=== PATIENT | female | born 1970 | race Caucasian/White ===

== ENCOUNTER 2018-08-15 18:01 | Emergency (ER) | payer MEDICAID ==
[~2018-08-15] VITALS: Ht 162.6 cm; Wt 82.6 kg
[2018-08-15 18:05] VITALS: Ht 162.6 cm; Wt 82.6 kg
[2018-08-15] MEDS ORDERED: ONDANSETRON 4 MG INJ IV STA (18:16)
[2018-08-15] MEDS ORDERED: morphine 4 MG/ML VIAL IV STA (18:16)
[2018-08-15] MEDS ORDERED: ONDA4TAB14 PO (19:58)
[2018-08-15] MEDS ORDERED: IBUP-1542 PO (19:58)
--- NOTE | 2018-08-15 20:01 | ERD ---
ER Documentation Chief Complaint Chief Complaint FELLING , WEAK , VOMITING AFTER HIKING TODAY H/O DM , PT DIAPHORETIC HPI Patient is a 47-year-old female with diabetes who presents with dizziness and nausea. She has headache as well. Symptoms started about 1 hour prior. It started after hiking today. She had an emotional issue with her family before as well today. She has never had this symptoms before. She has had no treat ment as of yet. Upon review of old medical records this is the patient's first visit to the emergency department. She does have a primary doctor. ROS All systems reviewed and are negative except as per history of present illness. Medications Home Meds Active Scripts Ondansetron (Ondansetron Odt) 4 Mg Tab.rapdis, 4 MG PO Q6H PRN for NAUSEA AND/OR VOMITING, #10 TAB Prov:ADARSH MCCARTHY MD 08/15/18 Ibuprofen* (Motrin*) 600 Mg Tab, 600 MG PO Q6H PRN for PAIN AND OR ELEVATED TEMP, #30 TAB Prov:ADARSH MCCARTHY MD 08/15/18 Allergies Allergies: Coded Allergies: No Known Allergy (Unverified , 08/15/18) PMhx/Soc History of Surgery: Yes ( x3) Hx Miscellaneous Medical Probl: Yes (DM) Hx Alcohol Use: No Hx Substance Use: No Hx Tobacco Use: No Smoking Status: Never smoker FmHx Family History: diabetes Physical Exam Vitals Vital Signs Date Temp Pulse Resp B/P (MAP) Pulse Ox O2 O2 Flow FiO2 Time Delivery Rate 08/15/18 98.1 97 18 134/92 99 18:05 (106) Physical Exam Const: No acute distress Head: Atraumatic Eyes: Normal Conjunctiva ENT: Normal External Ears, Nose and Mouth. Neck: Full range of motion. No meningismus. Resp: Clear to auscultation bilaterally Cardio: Regular rate and rhythm, no murmurs Abd: Soft, non tender, non distended. Normal bowel sounds Skin: No petechiae or rashes Back: No midline or flank tenderness Ext: No cyanosis, or edema Neur: Awake and alert, cranial nerves II through XII are intact, strength is 5 out of 5 in all 4 extremities Psych: Normal Mood and Affect Result Diagram: 08/15/18 1832 08/15/18 1832 Results 24 hrs Laboratory Tests Test 08/15/18 18:09 08/15/18 18:32 08/15/18 18:57 Bedside Glucose 191 mg/dL White Blood Count 8.9 10^3/ul Red Blood Count 4.47 10^6/ul Hemoglobin 13.3 g/dl Hematocrit 40.6 % Mean Corpuscular Volume 90.8 fl Mean Corpuscular Hemoglobin 29.8 pg Mean Corpuscular 32.8 g/dl Hemoglobin Concent Red Cell Distribution Width 12.6 % Platelet Count 340 10^3/UL Mean Platelet Volume 9.4 fl Immature Granulocytes % 0.400 % Neutrophils % 65.6 % Lymphocytes % 29.6 % Monocytes % 3.4 % Eosinophils % 0.4 % Basophils % 0.6 % Nucleated Red Blood Cells % 0.0 /100WBC Immature Granulocytes # 0.040 10^3/ul Neutrophils # 5.8 10^3/ul Lymphocytes # 2.6 10^3/ul Monocytes # 0.3 10^3/ul Eosinophils # 0.0 10^3/ul Basophils # 0.1 10^3/ul Nucleated Red Blood Cells # 0.0 10^3/ul Prothrombin Time 12.1 Sec Prothrombin Time Ratio 0.9 INR International 0.89 Normalized Ratio Activated Partial Thromboplast 21.7 Sec Time Urine Color STRAW Urine Clarity CLEAR Urine pH 6.0 Urine Specific [place] 1.008 Urine Ketones TRACE mg/dL Urine Nitrite NEGATIVE mg/dL Urine Bilirubin NEGATIVE mg/dL Urine Urobilinogen NEGATIVE mg/dL Urine Leukocyte Esterase NEGATIVE Darío/ul Urine Hemoglobin NEGATIVE mg/dL Urine Glucose 2+ mg/dL Urine Total Protein NEGATIVE mg/dl Sodium Level 140 mmol/L Potassium Level 3.8 mmol/L Chloride Level 96 mmol/L Carbon Dioxide Level 29 mmol/L Anion Gap 15 Blood Urea Nitrogen 8 mg/dl Creatinine 0.45 mg/dl Est Glomerular Filtrat > 60 mL/min Rate mL/min Glucose Level 194 mg/dl Calcium Level 9.8 mg/dl Troponin I < 0.012 ng/ml POC Beta HCG, Qualitative NEGATIVE Current Medications Medications Dose Sig/Maria Eugenia Start Time Status Last (Trade) Ordered Route PRN Stop Time Admin Dose Reason Admin Ondansetron 4 mg ONCE STAT 08/15/18 DC 08/15/18 HCl (Zofran IV 18:16 18:50 Inj) 2/16/19 18:17 Morphine 4 mg ONCE STAT 08/15/18 DC 08/15/18 Sulfate IV 18:16 18:50 (morphine) 08/15/18 18:17 Procedures/MDM EKG read by me: Rate/Rhythm: Regular rate and rhythm at a rate of 88 Intervals: Normal Impression: No evidence of ischemia or arrhythmia CT brain negative per radiology. Patient is a 47-year-old female with headache, dizziness, and nausea. EKG is normal. CT scan of the brain is negative. Laboratory studies are normal. I doubt intra-cranial hemorrhage or mass. I doubt acute coronary syndrome. I doubt stroke. The patient will be discharged home but will need to follow-up closely with her primary doctor within 24-48 hours. She can return sooner for any worsening symptoms. Departure Diagnosis: Primary Impression: Headache Headache type: unspecified Headache chronicity pattern: acute headache Intractability: not intractable Qualified Codes: R51 - Headache Additional Impressions: Dizziness Nausea Condition: Fair Patient Instructions: Self-Care for Headaches, Nausea, Dizziness, Unk Cause Additional Instructions: Llame al doctor MAANA y guanako sai HARISH PARA DENTRO DE 1-2 ROSSI.Dgale a la secre taria que nosotros le instruimos hacer esta harish.Avise o llame si [place] condicin se empeora antes de la harish. Regresa aqui si peor o no mejor. ADARSH MCCARTHY MD Aug 15, 2018 20:01
[2018-08-15 20:30] VITALS: BP 118/78; PULSE 94; RESP 19
== END 2018-08-15 20:32 | disposition home or self-care (01) ==
LOC: E/R 18:01
DX: R51 Headache (principal); R42 Dizziness and giddiness; E11.9 Type 2 diabetes mellitus without complications
CPT/HCPCS: 36415; 70450; 80048; 81003; 81025; 82962; 84484; 85025; 85610; 85730; 96374; 96375; J2270; J2405; Z7502; 93005

== ENCOUNTER 2018-09-19 00:13 | Inpatient (IN) | payer MEDICAID ==
[~2018-09-19] VITALS: Ht 157.5 cm; Wt 85.3 kg
[~2018-09-19 00:13] MED LIST: IBUP-1542 PO; ONDA4TAB14 PO
[2018-09-19] MEDS ORDERED: SODIUM CHLORIDE 0.9% 1L BAG IV* STA (00:29)
[2018-09-19] MEDS ORDERED: ACETAMINOPHEN 325 MG TAB PO STA (00:29)
[2018-09-19] MEDS ORDERED: KETOROLAC 30 MG INJ IV STA (00:29)
[2018-09-19] MEDS ORDERED: CEFTRIAXONE 1 GM/50 ML (PMX) 50 ML IVPB ONE (00:30)
[2018-09-19] MEDS ORDERED: HYDROmorphONE 0.5 MG/0.5 ML SYG IV STA (01:55)
[2018-09-19] MEDS ORDERED: SOD CHLORIDE 0.9% 1,000 ML IV STA (03:18)
[2018-09-19] MEDS ORDERED: MV/K1COM PO (04:06)
[2018-09-19] MEDS ORDERED: GLIM4TAB PO (04:06)
[2018-09-19] MEDS ORDERED: ACET-514 PO (04:06)
[2018-09-19] MEDS ORDERED: CEPH500C PO (04:06)
[2018-09-19] MEDS ORDERED: SITA1TAB5 PO (04:06)
[2018-09-19] MEDS ORDERED: PHEN97.511 PO (04:07)
[2018-09-19] MEDS ORDERED: ACETAMINOPHEN 325 MG TAB PO PRN ×2 (04:30→05:00)
[2018-09-19] MEDS ORDERED: ONDANSETRON 4 MG INJ IV PRN (04:30)
[2018-09-19] MEDS ORDERED: SOD CHLORIDE 0.9% 1,000 ML IV SCH (04:42)
[2018-09-19] MEDS ORDERED: BISACODYL (EC) 5 MG TAB PO PRN (05:00)
[2018-09-19] MEDS ORDERED: NACL 0.9% 3 ML SYG IV SCH (05:00)
[2018-09-19] MEDS: ONDANSETRON 4 MG INJ IV PRN (05:10)
[2018-09-19] MEDS: morphine 2 MG INJ IV PRN (05:10)
--- NOTE | 2018-09-19 05:18 | HP ---
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 IV fluid hydration with normal saline. Ceftriaxone 1 g every 24 hours. Will await urine culture results. Renal ultrasound. Patient was seen to have borderline blood pressures we did respond to fluids however secondary to this patient was admitted to telemetry. #2 pyelonephritis: Patient does have bilateral flank pain to palpation. Renal ultrasound. #3 diabetes mellitus: We will hold home oral medications, will check hemoglobin A 1C. Carbohydrate diet #4 obesity: Check hemoglobin A 1C, lipid panel, TSH #5 DVT GI prophylaxis: SCDs, no GI prophylaxis indicated Further treatment strategy will be implemented as per the clinical course Result Diagram: 09/19/18 0020 09/19/18 0020 Results 24hrs Laboratory Tests Test 09/19/18 00:20 White Blood Count 7.7 Red Blood Count 4.12 L Hemoglobin 11.9 L Hematocrit 37.2 Mean Corpuscular Volume 90.3 Mean Corpuscular Hemoglobin 28.9 L Mean Corpuscular Hemoglobin Concent 32.0 Red Cell Distribution Width 13.0 Platelet Count 339 Mean Platelet Volume 9.5 Immature Granulocytes % 0.500 H Neutrophils % 78.7 H Segmented Neutrophils % (Manual) 69 Band Neutrophils % (Manual) 4 Lymphocytes % 19.4 Lymphocytes % (Manual) 23 Reactive Lymphocytes % (Manual) 3 H Monocytes % 0.9 Monocytes % (Manual) 1 Eosinophils % 0.1 Basophils % 0.4 Nucleated Red Blood Cells % 0.0 Immature Granulocytes # 0.040 H Neutrophils # 6.1 Neutrophils # (Manual) 5.3 Band Neutrophils # 0.3 Lymphocytes (Manual) 1.7 Lymphocytes # 1.5 Reactive Lymphocytes # 0.2 H Monocytes # 0.1 L Monocytes # (Manual) 0.0 L Eosinophils # 0.0 Basophils # 0.0 Nucleated Red Blood Cells # 0.0 Platelet Estimate NORMAL Polychromasia 3+ Anisocytosis 1+ Urine Color TEENA Urine Clarity SLIGHTLY CLOUDY A Urine pH 6.0 Urine Specific [place] 1.014 Urine Ketones TRACE A Urine Nitrite POSITIVE A Urine Bilirubin NEGATIVE Urine Urobilinogen 2+ H Urine Leukocyte Esterase 1+ H Urine Microscopic RBC 20 H Urine Microscopic WBC > 182 H Urine Squamous Epithelial Cells FEW Urine Bacteria FEW A Urine Hemoglobin 1+ H Urine Glucose 2+ H Urine Total Protein 1+ H Sodium Level 137 Potassium Level 3.4 L Chloride Level 101 Carbon Dioxide Level 25 Anion Gap 11 Blood Urea Nitrogen 11 Creatinine 0.43 L Est Glomerular Filtrat Rate mL/min > 60 Glucose Level 179 Lactic Acid Level 1.6 Calcium Level 8.9 HPI/ROS Admit Date/Time Admit Date/Time Hx of Present Illness Chief complaint: Abdominal pain radiating to the back This is a 48-year-old female who presents today with abdominal pain that was radiating to the back. Patient reports chills and fever. She went to the clinic and was prescribed Keflex and took 2 doses but she she continued to feel worse so she came to the ER. She states that the pain starts in the lower abdomen and then radiates to the bilateral flanks. She has had some dysuria as well. She reports chills and fevers. She has a history of UTIs. Urgency. Allergies: NKDA Medications: See Aug Const: As per HPI Eyes : No pain discharge or redness or change in visual acuity ENT: No pain, sore throat, congestion, congestion, dysphagia or discharge Respiratory: No shortness of breath, cough, sputum, wheezing, or pleuritic pain Cardiovascular: No chest pain, palpitation, PND, or edema GI : As per HPI Genitourinary: As per HPI Musculoskeletal: No joint pain, back pain, neck pain, restricted range of motion in neck or joints Skin: No rash, bruising or hives Neuro: No headache, dizziness, syncope, seizure, focal weakness Endocrine: No polyuria, polydipsia, temperature intolerance Psych: No hallucination, depression, anxiety or suicidal ideation PMH/Family/Social Past Medical History UTI, diabetes mellitus Medications Current Medications Ondansetron HCl (Zofran Inj) 4 mg ER BRIDGE PRN IV NAUSEA/VOMITING; Start 09/19/18 at 04:30; Stop 09/20/18 at 04:29 Acetaminophen (Tylenol Tab) 650 mg ER BRIDGE PRN PO .MILD PAIN 1-3 OR TEMP; Start 09/19/18 at 04:30; Stop 09/20/18 at 04:29 Sodium Chloride 1,000 ml @ 80 mls/hr [id number] IV ; Start 09/19/18 at 04:42; Stop 09/19/18 at 17:11 IV Flush (NS 3 ml) 3 ml PER PROTOCOL IV ; Start 09/19/18 at 05:00 Ondansetron HCl (Zofran Inj) 4 mg Q6H PRN IV NAUSEA/VOMITING; Start 09/19/18 at 05:00 Acetaminophen (Tylenol Tab) 650 mg Q6H PRN PO .PAIN 1-3 OR TEMP; Start 09/19/18 at 05:00 Acetaminophen/ Hydrocodone Bitart ([place] (5/325)) 1 tab Q6H PRN PO .PAIN 4-6; Start 09/19/18 at 05:00 Morphine Sulfate (morphine) 2 mg Q4H PRN IV .PAIN 7-10; Start 09/19/18 at 05:00 Docusate Sodium (Colace) 100 mg Q12H PRN PO .CONSTIPATION; Start 09/19/18 at 05:00 Bisacodyl (Dulcolax) 5 mg DAILY PRN PO .CONSTIPATION; Start 09/19/18 at 05:00 Ceftriaxone Sodium 50 ml @ 100 mls/hr Q24H IVPB ; Start 09/19/18 at 23:00 Coded Allergies: No Known Allergy (Unverified , 09/19/18) Past Surgical History x3 Family History Significant Family History: no pertinent family hx Social History Alcohol Use: none Smoking Status: Never smoker Drug Use: none Exam/Review of Systems Vital Signs Vitals Vital Signs Date Temp Pulse Resp B/P (MAP) Pulse Ox O2 O2 Flow FiO2 Time Delivery Rate 09/19/18 98.1 85 19 102/60 98 Room Air 04:50 (74) Intake and Output 09/18/18 09/18/18 09/19/18 1515:00 23:00 07:00 IntakeIntake Total 2540 ml BalanceBalance 2540 ml Exam Exam General: Patient is currently sitting in bed she does appear to be uncomfortable secondary to pain HEENT: Atraumatic, normocephalic. The pupils are equal, round and reactive. Extraocular motor are intact Neck: Supple with full range of motion. No rigidity or meningismus Chest: Nontender Lungs: Clear to auscultation bilaterally no crackles rales or wheezing Heart: Normal S1-S2, Regular rhythm and rate. No murmur, S3, or S4 Abdomen: Bilateral flank tenderness to palpation soft , nontender, nondistended , bowel sounds are present. No guarding no rebound tenderness , No masses or organomegaly. Extremities: Normal to inspection, no edema no cyanosis Neurologic: Normal mental status, speech normal, cranial nerves II through XII are intact, motor and sensory are intact, no focal weakness Additional Comments PROCEDURE: XR Chest. CLINICAL INDICATION: Fever TECHNIQUE: AP semi upright portable chest was obtained COMPARISON: None. FINDINGS: Cardiomediastinal silhouette is normal. Pulmonary vasculature is normal. Lungs and costophrenic angles are clear. The bones soft tissues are unremarkable. IMPRESSION: No evidence acute cardiopulmonary disease. RPTAT:AAJJ Physician Valentin Date Time Electronically viewed and signed by Physician Valentin on 09/19/2018 03:16 BM/ CC: TERRY PASCAL MD [id number] MUKUND NEVAREZ Sep 19, 2018 05:18
--- NOTE | 2018-09-19 05:18 | ERD ---
ER Documentation Chief Complaint Chief Complaint FEVER X'S 2 DAYS HPI During the patient's encounter translation services were utilized Language: Georgian Source: Family Very pleasant 48-year-old female presents to the emergency room with approximately 2 days of symptoms including subjective fevers and chills. The patient describes dysuria urgency and frequency and constant right-sided flank pain that is dull and achy. Patient was seen by primary care physician and started on Keflex with 2 doses today. However given persistence of symptoms and generalized malaise the patient presents to the emergency room. ROS All systems reviewed and are negative except as per history of present illness. Medications Home Meds Reported Medications Phenazopyridine HCl (Azo Urinary Pain Relief) 97.5 Mg Tablet, 97.5 MG PO TID, TAB 09/19/18 Mv/K/O3/D3/Mag/C/Ala/Grn T/Chr (DIABETES HEALTH PACK) 1 Each Combo..pkg, 1 EACH PO DAILY 09/19/18 Acetaminophen (Mapap) 325 Mg Tablet, 650 MG PO Q4, TAB 09/19/18 Sitagliptin Phos/Metformin HCl (Janumet 50-1,000 mg Tablet) 1 Each Tablet, 1 EACH PO BID, TAB 09/19/18 Glimepiride* (Glimepiride*) 4 Mg Tablet, 4 MG PO WITH BREAKFAST, TAB 09/19/18 Cephalexin* (Cephalexin*) 500 Mg Capsule, 500 MG PO BID, #28 CAP 09/19/18 Discontinued Scripts Ondansetron (Ondansetron Odt) 4 Mg Tab.rapdis, 4 MG PO Q6H PRN for NAUSEA AND/OR VOMITING, #10 TAB Prov:ADARSH MCCARTHY MD 08/15/18 Ibuprofen* (Motrin*) 600 Mg Tab, 600 MG PO Q6H PRN for PAIN AND OR ELEVATED TEMP, #30 TAB Prov:ADARSH MCCARTHY MD 08/15/18 Allergies Allergies: Coded Allergies: No Known Allergy (Unverified , 09/19/18) PMhx/Soc History of Surgery: Yes ( x3) Anesthesia Reaction: No Hx Neurological Disorder: No Hx Respiratory Disorders: No Hx Cardiac Disorders: No Hx Psychiatric Problems: No Hx Miscellaneous Medical Probl: Yes (DM2) Hx Alcohol Use: No Hx Substance Use: No Hx Tobacco Use: No Smoking Status: Never smoker FmHx Family History: No diabetes Physical Exam Vitals Vital Signs Date Temp Pulse Resp B/P (MAP) Pulse Ox O2 O2 Flow FiO2 Time Delivery Rate 09/19/18 98.1 85 19 102/60 98 Room Air 04:50 (74) 09/19/18 94 21 95/62 (73) 97 Room Air 03:16 09/19/18 99.8 105 18 96/61 (73) 99 Room Air 01:53 09/19/18 103.0 00:41 09/19/18 103.0 123 28 120/64 95 Room Air 00:40 (82) 09/19/18 104.7 130 20 132/66 96 00:19 (88) Physical Exam General: Well developed, well nourished, no acute distress Head: Normocephalic, atraumatic. Eyes: Pupils equally reactive, EOM intact ENT: Moist mucous membranes Neck: Supple, no lymphadenopathy Respiratory: Lungs clear bilaterally, no distress Cardiovascular: Tachycardia, no murmurs, rubs, or gallops Abdominal: Soft, non-tender, non-distended, no peritoneal signs Back: Right-sided CVAT : Deferred MSK: No edema, no unilateral swelling, 5/5 strength Neurologic: Alert and oriented, moving all extremities, normal speech, no focal weakness, no cerebellar signs Skin: No rash Psych: Normal mood Result Diagram: 09/19/18 0020 09/19/18 0020 Results 24 hrs Laboratory Tests Test 09/19/18 00:20 White Blood Count 7.7 10^3/ul Red Blood Count 4.12 10^6/ul Hemoglobin 11.9 g/dl Hematocrit 37.2 % Mean Corpuscular Volume 90.3 fl Mean Corpuscular Hemoglobin 28.9 pg Mean Corpuscular Hemoglobin Concent 32.0 g/dl Red Cell Distribution Width 13.0 % Platelet Count 339 10^3/UL Mean Platelet Volume 9.5 fl Immature Granulocytes % 0.500 % Neutrophils % 78.7 % Segmented Neutrophils % (Manual) 69 % Band Neutrophils % (Manual) 4 % Lymphocytes % 19.4 % Lymphocytes % (Manual) 23 % Reactive Lymphocytes % (Manual) 3 % Monocytes % 0.9 % Monocytes % (Manual) 1 % Eosinophils % 0.1 % Basophils % 0.4 % Nucleated Red Blood Cells % 0.0 /100WBC Immature Granulocytes # 0.040 10^3/ul Neutrophils # 6.1 10^3/ul Neutrophils # (Manual) 5.3 10^3/ul Band Neutrophils # 0.3 10^3/ul Lymphocytes (Manual) 1.7 10^3/ul Lymphocytes # 1.5 10^3/ul Reactive Lymphocytes # 0.2 10^3/ul Monocytes # 0.1 10^3/ul Monocytes # (Manual) 0.0 10^3/ul Eosinophils # 0.0 10^3/ul Basophils # 0.0 10^3/ul Nucleated Red Blood Cells # 0.0 10^3/ul Platelet Estimate NORMAL Polychromasia 3+ Anisocytosis 1+ Urine Color TEENA Urine Clarity SLIGHTLY CLOUDY Urine pH 6.0 Urine Specific [place] 1.014 Urine Ketones TRACE mg/dL Urine Nitrite POSITIVE mg/dL Urine Bilirubin NEGATIVE mg/dL Urine Urobilinogen 2+ mg/dL Urine Leukocyte Esterase 1+ Darío/ul Urine Microscopic RBC 20 /HPF Urine Microscopic WBC > 182 /HPF Urine Squamous Epithelial Cells FEW /HPF Urine Bacteria FEW /HPF Urine Hemoglobin 1+ mg/dL Urine Glucose 2+ mg/dL Urine Total Protein 1+ mg/dl Sodium Level 137 mmol/L Potassium Level 3.4 mmol/L Chloride Level 101 mmol/L Carbon Dioxide Level 25 mmol/L Anion Gap 11 Blood Urea Nitrogen 11 mg/dl Creatinine 0.43 mg/dl Est Glomerular Filtrat Rate mL/min > 60 mL/min Glucose Level 179 mg/dl Lactic Acid Level 1.6 mmol/L Calcium Level 8.9 mg/dl Current Medications Medications Dose Sig/Maria Eugenia Start Time Status Last (Trade) Ordered Route PRN Stop Time Admin Dose Reason Admin Sodium 2,490 ml BOLUS OVER 2 09/19/18 DC 09/19/18 Chloride HOURS STAT 00:29 00:36 (NS) IV* 09/19/18 00:34 650 mg ONCE STAT 09/19/18 DC 09/19/18 Acetaminophen PO 00:29 00:41 (Tylenol 09/19/18 00:34 Tab) Ketorolac 30 mg ONCE STAT 09/19/18 DC 09/19/18 Tromethamine IV 00:29 00:41 (Toradol) 09/19/18 00:34 Ceftriaxone 50 ml @ ONCE ONCE 09/19/18 DC 09/19/18 Sodium 100 mls/hr IVPB 00:30 00:45 09/19/18 00:59 0.5 mg ONCE STAT 09/19/18 DC 09/19/18 Hydromorphone IV 01:55 01:59 HCl 09/19/18 01:56 (Dilaudid) Sodium 1,000 ml @ Q1H STAT 09/19/18 DC 09/19/18 Chloride 1,000 mls/hr IV 03:18 03:22 09/19/18 04:17 Ondansetron 4 mg ER BRIDGE 09/19/18 HCl (Zofran PRN IV 04:30 Inj) NAUSEA/VOMITI 09/20/18 04:29 NG 650 mg ER BRIDGE 09/19/18 Acetaminophen PRN PO 04:30 (Tylenol .MILD PAIN 09/20/18 04:29 Tab) 1-3 OR TEMP Sodium 1,000 ml @ [id number] IV 09/19/18 Chloride 80 mls/hr 04:42 09/19/18 17:11 IV Flush 3 ml PER 09/19/18 (NS 3 ml) PROTOCOL IV 05:00 Ondansetron 4 mg Q6H PRN 09/19/18 HCl (Zofran IV 05:00 Inj) NAUSEA/VOMITI NG 650 mg Q6H PRN 09/19/18 Acetaminophen PO .PAIN 1-3 05:00 (Tylenol OR TEMP Tab) 1 tab Q6H PRN 09/19/18 Acetaminophen PO .PAIN 4-6 05:00 / Hydrocodone Bitart ([place] (5/325)) Morphine 2 mg Q4H PRN 09/19/18 Sulfate IV .PAIN 05:00 (morphine) 7-10 Docusate 100 mg Q12H PRN 09/19/18 Sodium PO 05:00 (Colace) .CONSTIPATION Bisacodyl 5 mg DAILY PRN 09/19/18 (Dulcolax) PO 05:00 .CONSTIPATION Ceftriaxone 50 ml @ Q24H IVPB 09/19/18 Sodium 100 mls/hr 23:00 Procedures/MDM EKG, MONITORS, & DIAGNOSTIC IMAGING: EKG: I reviewed and interpreted a 12-lead EKG. Rhythm: Normal sinus rhythm ST Changes: No contiguous ST segment elevations T waves: No contiguous T wave inversions Impression: No evidence of acute cardiac ischemia Chest x-ray: I reviewed and interpreted a 1 view of the chest Mediastinum: No enlargement Cardiac silhouette: No cardiomegaly Airspace: Clear lung wagner bilaterally without evidence of pneumothorax Bones: No evidence of fracture LAB INTERPRETATION: I reviewed the laboratory testing and it shows normal lactic acid, urinary tract infection MEDICAL DECISION MAKING: The patient presents with signs and symptoms very consistent with acute pyelonephritis. The patient has Sirs criteria with suspected infection. A code sepsis was initiated. Patient had rapid infusion of IV fluids, blood cultures prior to antibiotics and the patient was given ceftriaxone. ER COURSE: * The patient's presentation is very consistent with pyelonephritis. Low concern for ureterolithiasis given no colicky pain. * The patient's pain is improving. * All the patient's white count is reassuring the patient has clear pyelonephritis and persistent symptoms. Additionally her blood pressure has remained in the 90s. The patient's mean arterial pressure remains greater than 65 and at this point I do not believe that a central line or pressors are indicated. Continue with fluid resuscitation. The patient will benefit from hospitalization and further observation. * Prior to admission the patient's blood pressure has increased into the 100 range. CONSULTATION: None DISPOSITION PLAN: Telemetry admission given the patient's borderline blood pressure and more frequent exams Accepting care team and consultations: I discussed the current laboratory data, diagnostic imaging and emergency care provided. Admitting team: Dr. Rogers Admitting team indication: Insurance directed Sepsis Documentation: Patient's infectious symptoms have not stabilized and the patient is at risk of rapid decompensation. The patient will be admitted for careful hydration, antibiotic therapy, and infectious source control. SEVERE SEPSIS CRITERIA: Infectious source: Acute pyelonephritis End organ damage indicated by: Currently no evidence of endorgan dysfunction SEPSIS MANAGEMENT Time of recognition of sepsis: Upon MD assessment. Time of recognition of severe sepsis: Patient does not meet criteria at this time. Time of recognition of septic shock: No septic shock at this time. 3 HOUR BUNDLE Blood cultures x 2 before broad-spectrum antibiotics: Yes 30 ml/kg NS bolus completed Initial lactate less than 2 Repeat lactate pending SEPTIC SHOCK ASSESSMENT: No lactic acid > 4.0 No persistent hypotension (SBP < 90 or 40 mmHg drop, MAP < 65) despite 30 mL/kg IV fluid bolus VOLUME REASSESSMENT FOR SEPTIC SHOCK: The patient does not meet criteria for septic shock in the emergency department at this time PERSISTENT HYPOTENSION TREATMENT: Comfort care no Central line not Required Vasopressor started not required I considered further perfusion assessment with CVP measurement, SCVO2, bedside ultrasound volume assessment, passive leg raise, trial of further fluid bolus. And proceeded with 30 ml/kg fluid bolus of NSS, broad spectrum antibiotics, and admission. CRITICAL CARE Critical care time 35 minutes Emergent fluid management while maintaining close respiratory support. Provision of immediate and broad-spectrum antibiotic therapy. Simultaneous assessment for possible sources in order to direct targeted therapy. Consideration for invasive and chemical support to prevent cardiopulmonary collapse. Critical care time is independent of procedures performed. Departure Diagnosis: Primary Impression: Acute pyelonephritis Additional Impression: Sepsis Sepsis type: sepsis due to unspecified organism Qualified Codes: A41.9 - Sepsis, unspecified organism Condition: Stable TERRY PASCAL MD Sep 19, 2018 05:18
[2018-09-19] MEDS ORDERED: POTASSIUM CHLORIDE 20 MEQ POWDER FOR ORAL SOLN PO ONE (07:30)
[2018-09-19 10:30] VITALS: BP 88/45; PULSE 74; RESP 16
[2018-09-19] MEDS ORDERED: GLUCAGON 1 MG INJ IM PRN (11:00)
[2018-09-19] MEDS ORDERED: GLUCOSE GEL 15 GRAM TUBE PO PRN ×2 (11:00)
[2018-09-19] MEDS ORDERED: DEXTROSE 50% 50 ML SYRINGE IV PRN ×2 (11:00)
[2018-09-19] MEDS ORDERED: GLUCOSE GEL 15 GRAM TUBE BUCCAL PRN (11:00)
[2018-09-19] MEDS: INSULIN ASPART [NOVOLOG] 3 ML PEN SC SCH ×3 (11:42→21:00)
--- NOTE | 2018-09-19 14:03 | PN ---
Date/Time of Note Date/Time of Note DATE: 09/19/18 TIME: 13:57 Assessment/Plan VTE Prophylaxis Risk score (from Nsg)>0 risk: 2 SCD applied (from Nsg): Yes Pharmacological prophylaxis: NA/contraindicated Pharm contraindication: low risk/ambulating Lines/Catheters IV Catheter Type (from Nrsg): Peripheral IV Assessment/Plan Assessment/Plan 48 obese diabetic woman with sepsis from pyelonephritis after failing outpatient keflex. #sepsis #Pyelonephritis - IV fluids until reliably taking PO - Ceftriaxone 1g q24h - await urine culture results - Renal US negative for obstruction or hydro or stones. # diabetes mellitus: - hold home oral medications - check hemoglobin A 1C. - RISS - Carbohydrate diet # DVT GI prophylaxis: SCDs, no GI prophylaxis indicated Result Diagram: 09/19/18 0020 09/19/18 0020 Subjective 24 Hr Interval Summary Free Text/Dictation Still has LLQ, L flank pain. Otherwise no acute distress, no o/n events. Exam/Review of Systems Exam Vitals Vital Signs Date Temp Pulse Resp B/P (MAP) Pulse Ox O2 O2 Flow FiO2 Time Delivery Rate 09/19/18 98.6 74 16 88/45 (59) 96 Room Air 10:30 Intake and Output 09/18/18 09/18/18 09/19/18 1515:00 23:00 07:00 IntakeIntake Total 2540 ml BalanceBalance 2540 ml Exam General: Obese woman lying in bed, no acute distress. HEENT: Atraumatic, normocephalic. The pupils are equal, round and reactive. Extraocular motor are intact Neck: Supple with full range of motion. No rigidity or meningismus Chest: Nontender Lungs: Clear to auscultation bilaterally no crackles rales or wheezing Heart: Normal S1-S2, Regular rhythm and rate. No murmur, S3, or S4 Abdomen: Bilateral flank tenderness to palpation soft , nontender, nondistended , bowel sounds are present. Extremities: Normal to inspection, no edema no cyanosis Results Results 24hrs Laboratory Tests Test 09/19/18 00:20 09/19/18 04:00 09/19/18 08:43 09/19/18 11:42 White Blood Count 7.7 Red Blood Count 4.12 L Hemoglobin 11.9 L Hematocrit 37.2 Mean Corpuscular 90.3 Volume Mean Corpuscular 28.9 L Hemoglobin Mean Corpuscular 32.0 Hemoglobin Concen t Red Cell 13.0 Distribution Width Platelet Count 339 Mean Platelet 9.5 Volume Immature 0.500 H Granulocytes % Neutrophils % 78.7 H Segmented 69 Neutrophils % (Manual) Band Neutrophils 4 % (Manual) Lymphocytes % 19.4 Lymphocytes % 23 (Manual) Reactive 3 H Lymphocytes % (Manual) Monocytes % 0.9 Monocytes % 1 (Manual) Eosinophils % 0.1 Basophils % 0.4 Nucleated Red 0.0 Blood Cells % Immature 0.040 H Granulocytes # Neutrophils # 6.1 Neutrophils # 5.3 (Manual) Band Neutrophils 0.3 # Lymphocytes 1.7 (Manual) Lymphocytes # 1.5 Reactive 0.2 H Lymphocytes # Monocytes # 0.1 L Monocytes # 0.0 L (Manual) Eosinophils # 0.0 Basophils # 0.0 Nucleated Red 0.0 Blood Cells # Platelet Estimate NORMAL Polychromasia 3+ Anisocytosis 1+ Urine Color TEENA Urine Clarity SLIGHTLY CLOUDY A Urine pH 6.0 Urine Specific 1.014 [place] Urine Ketones TRACE A Urine Nitrite POSITIVE A Urine Bilirubin NEGATIVE Urine 2+ H Urobilinogen Urine Leukocyte 1+ H Esterase Urine Microscopic 20 H RBC Urine Microscopic > 182 H WBC Urine Squamous FEW Epithelial Cells Urine Bacteria FEW A Urine Hemoglobin 1+ H Urine Glucose 2+ H Urine Total 1+ H Protein Sodium Level 137 Potassium Level 3.4 L Chloride Level 101 Carbon Dioxide 25 Level Anion Gap 11 Blood Urea 11 Nitrogen Creatinine 0.43 L Est Glomerular > 60 Filtrat Rate mL/min Glucose Level 179 Lactic Acid Level 1.6 1.1 Calcium Level 8.9 POC Beta HCG, NEGATIVE Qualitative Bedside Glucose 185 Medications Medication Current Medications Sodium Chloride 1,000 ml @ 80 mls/hr [id number] IV Last administered on 09/19/18at 05:10; Admin Dose 80 MLS/HR; Start 09/19/18 at 04:42; Stop 09/19/18 at 17:11 IV Flush (NS 3 ml) 3 ml PER PROTOCOL IV ; Start 09/19/18 at 05:00 Ondansetron HCl (Zofran Inj) 4 mg Q6H PRN IV NAUSEA/VOMITING Last administered on 09/19/18at 05:10; Admin Dose 4 MG; Start 09/19/18 at 05:00 Acetaminophen (Tylenol Tab) 650 mg Q6H PRN PO .PAIN 1-3 OR TEMP; Start 09/19/18 at 05:00 Acetaminophen/ Hydrocodone Bitart ([place] (5/325)) 1 tab Q6H PRN PO .PAIN 4-6; Start 09/19/18 at 05:00 Morphine Sulfate (morphine) 2 mg Q4H PRN IV .PAIN 7-10 Last administered on 09/19/18at 05:10; Admin Dose 2 MG; Start 09/19/18 at 05:00 Docusate Sodium (Colace) 100 mg Q12H PRN PO .CONSTIPATION; Start 09/19/18 at 05:00 Bisacodyl (Dulcolax) 5 mg DAILY PRN PO .CONSTIPATION; Start 09/19/18 at 05:00 Ceftriaxone Sodium 50 ml @ 100 mls/hr Q24H IVPB ; Start 09/19/18 at 23:00 Diagnostic Test (Pha) (Accu-Chek) 1 ea 02 XX ; Start 09/20/18 at 02:00 Insulin Aspart (Novolog Insulin Pen) NOVOLOG *MODERATE* ALGORITHM WITH MEALS BEDTIME SC ; Start 09/19/18 at 12:00 Miscellaneous Information 1 ea NOTE XX ; Start 09/19/18 at 11:00 Glucose (Glutose) 15 gm Q15M PRN PO DECREASED GLUCOSE; Start 09/19/18 at 11:00 Glucose (Glutose) 22.5 gm Q15M PRN PO DECREASED GLUCOSE; Start 09/19/18 at 11:00 Dextrose (D50w Syringe) 25 ml Q15M PRN IV DECREASED GLUCOSE; Start 09/19/18 at 11:00 Dextrose (D50w Syringe) 50 ml Q15M PRN IV DECREASED GLUCOSE; Start 09/19/18 at 11:00 Glucagon (Glucagen) 1 mg Q15M PRN IM DECREASED GLUCOSE; Start 09/19/18 at 11:00 Glucose (Glutose) 15 gm Q15M PRN BUCCAL DECREASED GLUCOSE; Start 09/19/18 at 11:00 CHENTE LOPEZ MD Sep 19, 2018 14:03
[2018-09-19] MEDS: HYDROCODONE/APAP (5/325) TAB PO PRN ×2 (14:08→21:35)
[2018-09-19 14:10] VITALS: BP 100/60; PULSE 72; RESP 16
[2018-09-19 20:41] VITALS: BP 116/67; PULSE 87; RESP 18
[2018-09-19] MEDS: DOCUSATE SODIUM 100 MG CAP PO PRN (21:35)
[2018-09-19] MEDS: CEFTRIAXONE 1 GM/50 ML (PMX) 50 ML IVPB SCH (23:24)
[2018-09-20] MEDS: ACCU-CHEK XX SCH (02:00)
[2018-09-20] MEDS: ONDANSETRON 4 MG INJ IV PRN (02:54)
[2018-09-20] MEDS: morphine 2 MG INJ IV PRN (02:54)
[2018-09-20 03:04] VITALS: BP 109/59; PULSE 84; RESP 18
[2018-09-20] MEDS: INSULIN ASPART [NOVOLOG] 3 ML PEN SC SCH ×4 (08:00→21:00)
[2018-09-20 08:05] VITALS: BP 105/59; PULSE 83; RESP 16
[2018-09-20] MEDS: DOCUSATE SODIUM 100 MG CAP PO PRN (09:16)
[2018-09-20] MEDS: HYDROCODONE/APAP (5/325) TAB PO PRN ×2 (12:15→19:54)
--- NOTE | 2018-09-20 13:25 | PN ---
Date/Time of Note Date/Time of Note DATE: 09/20/18 TIME: 13:23 Assessment/Plan VTE Prophylaxis Risk score (from Nsg)>0 risk: 3 SCD applied (from Nsg): Yes Pharmacological prophylaxis: NA/contraindicated Pharm contraindication: low risk/ambulating Lines/Catheters IV Catheter Type (from Nrsg): Saline Lock Assessment/Plan Assessment/Plan 48 obese diabetic woman with sepsis from pyelonephritis after failing outpatient keflex. #sepsis #Pyelonephritis - IV fluids until reliably taking PO - Ceftriaxone 1g q24h - await urine culture results - Renal US negative for obstruction or hydro or stones. # diabetes mellitus: - hold home oral medications - check hemoglobin A 1C. - RISS - Carbohydrate diet # DVT GI prophylaxis: SCDs, no GI prophylaxis indicated Result Diagram: 09/20/1853709/20/18537 Subjective 24 Hr Interval Summary Free Text/Dictation No acute overnight events. Still has mild L flank pain. Exam/Review of Systems Exam Vitals Vital Signs Date Temp Pulse Resp B/P (MAP) Pulse Ox O2 O2 Flow FiO2 Time Delivery Rate 09/20/18 98.4 83 16 105/59 97 08:05 (74) 09/19/18 Room Air 14:10 Intake and Output 09/19/18 09/19/18 09/20/18 1515:00 23:00 07:00 IntakeIntake Total 300 ml 1180 ml 750 ml BalanceBalance 300 ml 1180 ml 750 ml Exam General: Obese woman lying in bed, no acute distress. HEENT: Atraumatic, normocephalic. The pupils are equal, round and reactive. Extraocular motor are intact Neck: Supple with full range of motion. No rigidity or meningismus Chest: Nontender Lungs: Clear to auscultation bilaterally no crackles rales or wheezing Heart: Normal S1-S2, Regular rhythm and rate. No murmur, S3, or S4 Abdomen: Bilateral flank tenderness to palpation soft , nontender, nondistended , bowel sounds are present. Extremities: Normal to inspection, no edema no cyanosis Results Results 24hrs Laboratory Tests Test 09/19/18 16:46 09/19/18 21:30 09/20/18 05:38 09/20/18 08:05 Bedside Glucose 147 162 132 White Blood Count 11.4 #H Red Blood Count 3.70 L Hemoglobin 10.9 L Hematocrit 34.2 L Mean Corpuscular 92.4 Volume Mean Corpuscular 29.5 Hemoglobin Mean Corpuscular 31.9 L Hemoglobin Concent Red Cell 13.3 Distribution Width Platelet Count 316 Mean Platelet Volume 9.7 Immature 0.400 Granulocytes % Neutrophils % 62.5 Lymphocytes % 29.6 Monocytes % 6.2 Eosinophils % 1.0 Basophils % 0.3 Nucleated Red Blood 0.0 Cells % Immature 0.040 H Granulocytes # Neutrophils # 7.1 Lymphocytes # 3.4 H Monocytes # 0.7 Eosinophils # 0.1 Basophils # 0.0 Nucleated Red Blood 0.0 Cells # Sodium Level 141 Potassium Level 4.0 Chloride Level 105 Carbon Dioxide Level 25 Anion Gap 11 Blood Urea Nitrogen 4 L Creatinine 0.44 Est Glomerular > 60 Filtrat Rate mL/min Glucose Level 135 # Hemoglobin A1c 7.5 H Calcium Level 8.3 L Magnesium Level 2.2 Total Bilirubin 0.3 Direct Bilirubin 0.00 Indirect Bilirubin 0.3 Aspartate Amino 40 Transf (AST/SGOT) Alanine 38 Aminotransferase (AL T/SGPT) Alkaline Phosphatase 89 Total Protein 6.4 Albumin 3.1 L Globulin 3.30 H Albumin/Globulin 0.93 Ratio Triglycerides Level 98 Cholesterol Level 104 LDL Cholesterol, 61 Calculated HDL Cholesterol 23 L Cholesterol/HDL 4.5 Ratio Thyroid Stimulating 3.000 Hormone (TSH) Test 09/20/18 12:04 Bedside Glucose 202 Medications Medication Current Medications IV Flush (NS 3 ml) 3 ml PER PROTOCOL IV ; Start 09/19/18 at 05:00 Ondansetron HCl (Zofran Inj) 4 mg Q6H PRN IV NAUSEA/VOMITING Last administered on 09/20/18at 02:54; Admin Dose 4 MG; Start 09/19/18 at 05:00 Acetaminophen (Tylenol Tab) 650 mg Q6H PRN PO .PAIN 1-3 OR TEMP; Start 09/19/18 at 05:00 Acetaminophen/ Hydrocodone Bitart ([place] (5/325)) 1 tab Q6H PRN PO .PAIN 4-6 Last administered on 09/20/18at 12:15; Admin Dose 1 TAB; Start 09/19/18 at 05:00 Morphine Sulfate (morphine) 2 mg Q4H PRN IV .PAIN 7-10 Last administered on 09/20/18at 02:54; Admin Dose 2 MG; Start 09/19/18 at 05:00 Docusate Sodium (Colace) 100 mg Q12H PRN PO .CONSTIPATION Last administered on 09/20/18at 09:16; Admin Dose 100 MG; Start 09/19/18 at 05:00 Bisacodyl (Dulcolax) 5 mg DAILY PRN PO .CONSTIPATION Last administered on 09/19/18at 21:35; Admin Dose 5 MG; Start 09/19/18 at 05:00 Ceftriaxone Sodium 50 ml @ 100 mls/hr Q24H IVPB Last administered on 09/19/18at 23:24; Admin Dose 100 MLS/HR; Start 09/19/18 at 23:00 Diagnostic Test (Pha) (Accu-Chek) 1 ea 02 XX ; Start 09/20/18 at 02:00 Insulin Aspart (Novolog Insulin Pen) NOVOLOG *MODERATE* ALGORITHM WITH MEALS BEDTIME SC Last administered on 09/20/18at 12:06; Admin Dose 4 UNIT; Start 09/19/18 at 12:00 Miscellaneous Information 1 ea NOTE XX ; Start 09/19/18 at 11:00 Glucose (Glutose) 15 gm Q15M PRN PO DECREASED GLUCOSE; Start 09/19/18 at 11:00 Glucose (Glutose) 22.5 gm Q15M PRN PO DECREASED GLUCOSE; Start 09/19/18 at 11:00 Dextrose (D50w Syringe) 25 ml Q15M PRN IV DECREASED GLUCOSE; Start 09/19/18 at 11:00 Dextrose (D50w Syringe) 50 ml Q15M PRN IV DECREASED GLUCOSE; Start 09/19/18 at 11:00 Glucagon (Glucagen) 1 mg Q15M PRN IM DECREASED GLUCOSE; Start 09/19/18 at 11:00 Glucose (Glutose) 15 gm Q15M PRN BUCCAL DECREASED GLUCOSE; Start 09/19/18 at 11:00 CHENTE LOPEZ MD Sep 20, 2018 13:25
[2018-09-20 20:00] VITALS: BP 109/69; PULSE 90; RESP 17
[2018-09-20] MEDS: CEFTRIAXONE 1 GM/50 ML (PMX) 50 ML IVPB SCH (22:22)
[2018-09-21] MEDS: ACCU-CHEK XX SCH (01:43)
[2018-09-21 02:00] VITALS: BP 111/68; PULSE 68; RESP 19
[2018-09-21] MEDS: HYDROCODONE/APAP (5/325) TAB PO PRN ×2 (06:14→15:41)
[2018-09-21 07:51] VITALS: BP 103/58; PULSE 73; RESP 18
[2018-09-21] MEDS: INSULIN ASPART [NOVOLOG] 3 ML PEN SC SCH ×4 (08:00→21:08)
[2018-09-21 13:56] VITALS: BP 109/68; PULSE 88; RESP 19
[2018-09-21] MEDS ORDERED: LEVO750T25 PO (15:08)
--- NOTE | 2018-09-21 15:08 | PDOCDIS ---
Discharge Instructions CONDITION [id number] Patient Condition: [id number] Stable HOME CARE INSTRUCTIONS: [id number] Special Diet: [id number] Carb controlled diet ACTIVITY: [id number] Activity Restrictions: [id number] Slowly Increase Activity Rest between Activity Avoid heavy lifting FOLLOW UP/APPOINTMENTS Follow-up Plan Please take your medications as prescribed, see your doctor in the clinic in the next 1 week. BERLIN PRATT Sep 21, 2018 15:07
--- NOTE | 2018-09-21 15:12 | DS ---
Date/Time of Note Date/Time of Note DATE: 09/21/18 TIME: 15:09 Discharge Summary Admission/Discharge Info Admit Date/Time Sep 19, 2018 at 04:23 Discharge Date/Time Discharge Diagnosis #sepsis -resolving now, secondary to UTI - pyelonephritis # diabetes mellitus: A1c = 7.5 # obesity -counseled on weight cessation Patient Condition: Stable Hx of Present Illness 48-year-old female who presents today with abdominal pain that was radiating to the back. Patient reports chills and fever. She went to the clinic and was prescribed Keflex and took 2 doses but she she continued to feel worse so she came to the ER. She states that the pain starts in the lower abdomen and then radiates to the bilateral flanks. She has had some dysuria as well. She reports chills and fevers. She has a history of UTIs. Urgency. Hospital Course Patient was admitted, found with fever and signs of sepsis secondary to pyelonephritis UTI. Patient placed on pain control medications, IV fluids, broad-spectrum antibiotics. Over the course of her hospital stay her urinary symptoms improved. Her fever subsided. Her urine culture grew greater 100,000 colony-forming units E. coli sensitive to Rocephin which she was on while here in the hospital. She was able to ambulate, tolerated p.o. diet. Vital signs are stable on day of discharge. Patient will be discharged home today in improved condition with 7 more days of antibiotics needed which we will prescribe. See below for full list of discharge medications. Home Meds Active Scripts Levofloxacin* (Levaquin*) 750 Mg Tablet, 750 MG PO DAILY for 7 Days, #7 TAB Prov:BERLIN PRATT 09/21/18 Reported Medications Mv/K/O3/D3/Mag/C/Ala/Grn T/Chr (DIABETES HEALTH PACK) 1 Each Combo..pkg, 1 EACH PO DAILY 09/19/18 Acetaminophen (Mapap) 325 Mg Tablet, 650 MG PO Q4, TAB 09/19/18 Sitagliptin Phos/Metformin HCl (Janumet 50-1,000 mg Tablet) 1 Each Tablet, 1 EACH PO BID, TAB 09/19/18 Glimepiride* (Glimepiride*) 4 Mg Tablet, 4 MG PO WITH LUNCH, TAB 09/19/18 Discontinued Reported Medications Phenazopyridine HCl (Azo Urinary Pain Relief) 97.5 Mg Tablet, 95 MG PO TIDM A PRN for PAIN, #2 TAB 2 TABLETS 09/19/18 Cephalexin* (Cephalexin*) 500 Mg Capsule, 500 MG PO Q6, #28 CAP 09/19/18 Discontinued Scripts Ondansetron (Ondansetron Odt) 4 Mg Tab.rapdis, 4 MG PO Q6H PRN for NAUSEA AND/OR VOMITING, #10 TAB Prov:ADARSH MCCARTHY MD 08/15/18 Ibuprofen* (Motrin*) 600 Mg Tab, 600 MG PO Q6H PRN for PAIN AND OR ELEVATED TEMP, #30 TAB Prov:ADARSH MCCARTHY MD 08/15/18 Follow-up Plan Please take your medications as prescribed, see your doctor in the clinic in the next 1 week. Primary Care Provider Care Physician No Primary Time spent on discharge: > 30 minutes Pending Labs Laboratory Tests Test 09/20/18 16:43 09/20/18 19:57 09/21/18 08:03 09/21/18 12:35 Bedside 189 169 136 203 Glucose mg/dL (70-220) mg/dL (70-220) mg/dL (70-220) mg/dL (70-220) BERLIN PRATT Sep 21, 2018 15:12
[2018-09-21 19:36] VITALS: BP 104/56; PULSE 79; RESP 20
[2018-09-21] MEDS: CEFTRIAXONE 1 GM/50 ML (PMX) 50 ML IVPB SCH (21:01)
== END 2018-09-21 22:14 | disposition home or self-care (01) | DRG 872 ==
LOC: E/R 00:13 → PP2 04:23 → EDBEDREQSVC 09:56
PROVIDERS: ADMIT Family Medicine; ATTEND Hospitalist
DX: A41.9 Sepsis, unspecified organism (principal); N10 Acute pyelonephritis; B96.20 Unspecified Escherichia coli [E. coli] as the cause of diseases classified elsewhere; E66.9 Obesity, unspecified; Z68.34 Body mass index [BMI] 34.0-34.9, adult; E11.9 Type 2 diabetes mellitus without complications; Z79.84 Long term (current) use of oral hypoglycemic drugs; Z71.3 Dietary counseling and surveillance
CPT/HCPCS: 36415; 71045; 74176; 76775; 80048; 80053; 80061; 81001; 81025; 82962; 83036; 83605; 83735; 84443; 84703; 85025; 87040; 87086; 93005; 96361; 96365; 96375; J0696; J1170; J1815; J1885; J2270; J2405; J7030